=== PATIENT | male | born 1955 | race Caucasian/White ===

== ENCOUNTER → 2018-12-24 | Outpatient (CLI) | payer BC ==
[~2018-12-24] MED LIST: ALBU90OI61 INH; Monodox100 MG PO; PROCODE120 PO
[2018-12-25 12:54] LABS: Campylobacter Sp Not Detected (NOT DETECT); E. Coli O157 Not Detected (NOT DETECT); Enteroaggregative E. coli-EAEC Not Detected (NOT DETECT); Enteropathogenic E. coli-EPEC Not Detected (NOT DETECT); Enterotoxigenic E. coli-ETEC Not Detected (NOT DETECT); Plesiomonas Shigelloides Not Detected (NOT DETECT); Salmonella Sp Not Detected (NOT DETECT); Shiga Toxin-prod E. coli-STEC Not Detected (NOT DETECT); Shigella/Enteroin E. coli-EIEC Not Detected (NOT DETECT); Vibrio Cholerae Not Detected (NOT DETECT); Vibrio Sp Not Detected (NOT DETECT); Yersinia Enterocolitica Not Detected (NOT DETECT)
[2018-12-25 12:55] LABS: Adenovirus F 40/41 Not Detected (NOT DETECT); Astrovirus Not Detected (NOT DETECT); Cryptosporidium Not Detected (NOT DETECT); Cyclospora Cayetanensis Not Detected (NOT DETECT); Entamoeba Histolytica Not Detected (NOT DETECT); Giardia Lamblia Not Detected (NOT DETECT); Norovirus GI/GII Not Detected (NOT DETECT); Rotavirus A Not Detected (NOT DETECT); Sapovirus Not Detected (NOT DETECT)
== END ==
LOC: LAB SHORT 11:18 → LAB 11:18
PROVIDERS: Nurse Practitioner
DX: R19.7 Diarrhea, unspecified (principal); R10.84 Generalized abdominal pain
CPT/HCPCS: 87324; 87507

== ENCOUNTER → 2023-05-21 | Outpatient (CLI) | payer MEDICARE ==
[2023-05-22 10:34] LABS: Stool Occult Bld Immuno 1 Positive (NEGATIVE)
== END ==
LOC: LAB SHORT 07:30 → LAB 07:30
PROVIDERS: Physician Assistant
DX: Z12.11 Encounter for screening for malignant neoplasm of colon (principal)
CPT/HCPCS: G0328

== ENCOUNTER 2023-09-25 07:31 | Day surgery (SDC) | payer SELFPAY ==
[2023-09-25] VITALS (17 sets, daily range): BP systolic 91–139; BP diastolic 61–91
[~2023-09-25] VITALS: Ht 172.7 cm; Wt 93.5 kg
[~2023-09-25 07:31] MED LIST changes: +Lactated Ringer's 1,000 ML IV SCH; +propofoL 40 ML IV ONE
--- NOTE | 2023-09-25 08:04 | NUR ---
09/25/23 0804 Tracie Byrd HISTORY, CHART, MEDICATIONS AND ALLERGIES REVIEWED BEFORE START OF PROCEDURE. PATIENT CONFIRMS NPO STATUS AND AGREES WITH SCHEDULED PROCEDURE. 3-LEAD EKG REVIEWED WITH PHYSICIAN PRIOR TO START OF PROCEDURE. MONITOR INTACT WITH CONTINUOUS PULSE OXIMETRY,CAPNOGRAPHY, 3-LEAD EKG, INTERMITTENT BP. SUPPLEMENTAL O2 TO BE TITRATED THROUGHOUT PROCEDURE TO MAINTAIN O2 SATURATION ABOVE 90%. PATIENT DETERMINED TO BE ASA APPROPRIATE FOR PROPOFOL SEDATION PRIOR TO START OF PROCEDURE BY DR. ARAGON. MALLAMPATI CLASS 2 AIRWAY: COMPLETE VISUALIZATION OF THE UVULA.
--- NOTE | 2023-09-25 08:06 | NUR ---
Ambulatory in Day Surgery Patient confirms NPO status and agrees with scheduled surgery. Pre-Op teaching done. Pt verbalizes understanding. History, Chart, Medications and Allergies reviewed before start of procedure.Patient States Post-Procedure ride home has been arranged.
--- NOTE | 2023-09-25 09:08 | NUR ---
Patient up to Ambulate independently. Gait steady. Discharge instructions reviewed with patient. Patient verbalizes understanding. Copy given to patient to take home. Patient States Post-Procedure ride home has been arranged. Discharged via wheelchair to private car for ride home. ALL BELONGINGS RETURNED TO PATIENT.
== END 2023-09-25 09:08 | disposition home or self-care (01) ==
LOC: ORSCMMR 07:31 → ORD 08:30 → ORSCMMR 09:08
PROVIDERS: Internal Medicine Gastroenterology
PROC: 0DBN8ZX Excision of Sigmoid Colon, Via Natural or Artificial Opening Endoscopic, Diagnostic (ICD-10-PCS; principal; 2023-09-25 08:30)
DX: R19.5 Other fecal abnormalities (principal); K62.5 Hemorrhage of anus and rectum; D12.5 Benign neoplasm of sigmoid colon; K57.30 Diverticulosis of large intestine without perforation or abscess without bleeding; Z87.891 Personal history of nicotine dependence
CPT/HCPCS: 88305; J2704; J7120